=== PATIENT | male | born 2000 | race Caucasian/White ===

== ENCOUNTER 2021-03-22 07:08 | Emergency (ER) | payer SELFPAY ==
[~2021-03-22] VITALS: Ht 177.8 cm; Wt 79.6 kg
--- NOTE | 2021-03-22 07:50 | PHYS DOC ---
General Adult EDM: Chief Complaint: SHORTNESS OF BREATH HPI: HPI: Patient is a 20-year-old male coming in for multiple complaints. Patient states he is been having shortness of breath for the past 2 days. Also complaining of left anterior lower rib pain. Patient states also he has noticed a "lump" doyle eath his sternum. Patient has been treated currently with doxycycline for chlamydia and states that he feels like his stomach is "sucked in". No fevers, cough. Patient has not had his Covid vaccines. No known sick contacts. Patient has baseline diarrhea that is unchanged. Review of Systems: Review of Systems: All other systems within normal limits except for as noted in the HPI Physical Exam: PE: Constitutional: Well developed, well nourished, no acute distress, non-toxic appearance. [] HENT: Normocephalic, atraumatic, bilateral external ears normal, nose normal. [] Eyes: PERRLA, conjunctiva normal, no discharge. [] Neck: No rigidity, supple, no stridor. [] Cardiovascular: Regular rate and rhythm, brisk cap refill [] Lungs & Thorax: Non labored symmetric respirations, no tachypnea or respiratory distress. Lungs clear to auscultation. Tenderness over left ribs. Normal xiphoid. [] Abdomen: Soft, nondistended, no guarding or rebound, no focal tenderness. Skin: Warm, dry, no erythema, no rash. [] Back: Unremarkable Extremities: No deformities, range of motion grossly intact, no lower extremity edema [] Neurologic: Alert and oriented X 3, no focal deficits noted. [] Psychologic: Affect normal, judgement normal, mood normal. [] EKG: EKG: [] Radiology/Procedures: Radiology/Procedures: [address] [address] IMAGING REPORT Signed PATIENT: ILENE BARCLAY ACCOUNT: [id number] : 2000 LOCATION: ER AGE: 20 SEX: M EXAM STATUS: REG ER ORD. PHYSICIAN: USAMA ARNETT MD REASON: left chest pain PROCEDURE: CHEST PA & LATERAL EXAMINATION: Chest radiograph. VIEWS: 2 views COMPARISON: None INDICATION:20 years, Male, left chest pain. FINDINGS: Normal cardiomediastinal silhouette. No focal consolidation. No pleural effusion or pneumothorax. No acute osseous process. IMPRESSION: No acute cardiopulmonary process. Electronically signed by: Christianne Luke MD (03/22/2021 7:52 AM) [id number] DICTATED AND SIGNED BY: CHRISTIANNE LUKE MD DATE: 03/22/21 0751 CC: TEOFILO MAZARIEGOS; USAMA ARNETT MD ~MTH0 0 [] Heart Score: C/O Chest Pain: N/A Risk Factors: Risk Factors: DM, Current or recent (<one month) smoker, HTN, HLP, family history of CAD, obesity. Risk Scores: Score 0 - 3: 2.5% MACE over next 6 weeks - Discharge Home Score 4 - 6: 20.3% MACE over next 6 weeks - Admit for Clinical Observation Score 7 - 10: 72.7% MACE over next 6 weeks - Early Invasive Strategies Course & Med Decision Making: Course & Med Decision Making Pertinent Labs and Imaging studies reviewed. (See chart for details) [] Dragon Disclaimer: Dragon Disclaimer: This electronic medical record was generated, in whole or in part, using a voice recognition dictation system. Departure Departure: Impression: Primary Impression: Chest wall pain Disposition: HOME / SELF CARE / HOMELESS Condition: STABLE Referrals: TEOFILO MAZARIEGOS (PCP) Patient Instructions: Chest Pain, Child USAMA ARNETT MD Mar 22, 2021 07:50
--- NOTE | 2021-03-22 07:54 | RAD ---
EXAMINATION: Chest radiograph. VIEWS: 2 views COMPARISON: None INDICATION:20 years, Male, left chest pain. FINDINGS: Normal cardiomediastinal silhouette. No focal consolidation. No pleural effusion or pneumothorax. No acute osseous process. IMPRESSION: No acute cardiopulmonary process. Electronically signed by: Cassandra Luke MD (03/22/2021 7:52 AM) [id number]
[2021-03-22 08:22] LABS: CALCIUM 9.4 mg/dL (8.5-10.1); GFR 93.4; POTASSIUM 3.7 mmol/L (3.5-5.1)
[2021-03-22 08:27] LABS: ALBUMIN 4.3 g/dL (3.4-5.0); ALBUMIN/GLOBULIN RATIO 1.4 (1.0-1.7); TOTAL BILIRUBIN 0.5 mg/dL (0.2-1.0); TOTAL PROTEIN 7.4 g/dL (6.4-8.2)
[2021-03-22 08:42] LABS: BASO # 0.1 x10^3/uL (0.0-0.2); BASO % 1 % (0-3); EOS # 0.4 x10^3/uL (0.0-0.7); EOS % 5 % (0-3); HEMATOCRIT 48.6 % (39.0-53.0); HEMOGLOBIN 16.9 g/dL (13.0-17.5); LYMPH # 2.9 x10^3/uL (1.0-4.8); LYMPH % 37 % (24-48); MEAN CORPUSCULAR HEMOGLOBIN 30 pg (25-35); MEAN CORPUSCULAR HGB CONC 35 g/dL (31-37); MEAN CORPUSCULAR VOLUME 87 fL (79-100); MONO # 0.8 x10^3/uL (0.0-1.1); MONO % 11 % (0-9); NEUT # 3.6 x10^3uL (1.8-7.7); NEUT % 46 % (31-73); PLATELET COUNT 279 x10^3/uL (140-400); RED BLOOD COUNT 5.57 x10^6/uL (4.30-5.70); RED CELL DISTRIBUTION WIDTH 12.7 % (11.5-14.5); WHITE BLOOD COUNT 7.9 x10^3/uL (4.0-11.0)
[2021-03-22 09:15] VITALS: BP 130/71
== END 2021-03-22 09:21 | disposition home or self-care (01) ==
LOC: ER 07:08
DX: R07.81 Pleurodynia (principal); R06.02 Shortness of breath
CPT/HCPCS: 36415; 71046; 80053; 83690; 85025; 85379; 99284

== ENCOUNTER 2021-12-16 19:53 | Emergency (ER) | payer BC ==
[~2021-12-16] VITALS: Ht 177.8 cm; Wt 76.5 kg
[2021-12-16] MEDS ORDERED: diphenhydrAMINE 50 MG/ML VIAL IVP ONE (20:15)
[2021-12-16] MEDS ORDERED: IV RINGERS SOLUTION,LACTATED 1,000 ML IV ONE ×2 (20:15→21:15)
[2021-12-16] MEDS ORDERED: ONDANSETRON PF 4 MG/2 ML VIAL. IVP ONE (20:15)
--- NOTE | 2021-12-16 20:19 | PHYS DOC ---
Past History Past Medical History: Other Additional Past Medical Histor: chlamydia Past Surgical History: Tonsillectomy, Other Additional Past Surgical Histo: ear tubes Additional Smoking Information: vaps Alcohol Use: Occasionally Drug Use: Marijuana General Adult EDM: Chief Complaint: NAUSEA/VOMITING/DIARRHEA HPI: HPI: Patient is a 21-year-old male that presents today with a 3-day history of nausea and vomiting. Patient states that 3 days ago he started having some nausea and vomiting he states he has been unable to keep any fluids or any food down during this time. Patient also states that he has not voided today. Patient states that he has abdominal pain that comes and goes and he was unable to show me where the pain is out when he does have it, patient appears very anxious and has fine tremors. Patient also states that when he vomits he has a scant amount of blood, he states that when he vomited last he got blurry and almost passed out. Patient denies chest pain, shortness of air, or fever and chills. Review of Systems: Review of Systems: Constitutional: Denies fever or chills Eyes: Denies change in visual acuity HENT: Denies nasal congestion or sore throat Respiratory: Denies cough or shortness of breath Cardiovascular: Denies chest pain or edema GI: abdominal pain, nausea, vomiting, denies bloody stools or diarrhea : Denies dysuria Musculoskeletal: Denies back pain or joint pain Integument: Denies rash Neurologic: Denies headache, focal weakness or sensory changes Endocrine: Denies polyuria or polydipsia Lymphatic: Denies swollen glands Psychiatric: Denies depression or anxiety Current Medications: Current Meds: Current Medications Medications (Trade) Dose Ordered Sig/Galen Start Time Stop Time Status Last Admin Dose Admin Diphenhydramine HCl (Benadryl) 25 mg 1X ONCE 12/16/21 20:15 12/16/21 20:16 UNV Lactated Ringer's 1,000 ml @ 999 mls/hr 1X ONCE 12/16/21 20:15 12/16/21 21:15 UNV Ondansetron HCl (Zofran) 4 mg 1X ONCE 12/16/21 20:15 12/16/21 20:16 UNV Allergies: Allergies: Allergies Coded Allergies Type Severity Reaction Last Updated Verified promethazine Allergy Unknown 03/22/21 Yes Physical Exam: PE: Constitutional: Well developed, well nourished, mild distress, non-toxic appearance. [] HENT: Normocephalic, atraumatic, bilateral external ears normal, oropharynx moist, no oral exudates, nose normal. [] Eyes: PERRLA, EOMI, conjunctiva normal, no discharge. [] Neck: Normal range of motion, no tenderness, supple, no stridor. [] Cardiovascular:Heart rate regular rhythm, no murmur [] Lungs & Thorax: Bilateral breath sounds clear to auscultation [] Abdomen: Bowel sounds normal, patient guarded with palpation, no pulsatile masses or no hernias noted Skin: Warm, dry, no erythema, no rash. [] Back: No tenderness, no CVA tenderness. [] Extremities: No tenderness, no cyanosis, no clubbing, ROM intact, no edema. [] Neurologic: Alert and oriented X 3, normal motor function, normal sensory func tion, no focal deficits noted. [] Psychologic: Affect normal, judgement normal, mood normal. [] Current Patient Data: Labs: Laboratory Tests Test 12/16/21 20:08 White Blood Count 13.6 x10^3/uL Red Blood Count 6.16 x10^6/uL Hemoglobin 19.5 g/dL Hematocrit 54.9 % Mean Corpuscular Volume 89 fL Mean Corpuscular Hemoglobin 32 pg Mean Corpuscular Hemoglobin Concent 36 g/dL Red Cell Distribution Width 12.4 % Platelet Count 405 x10^3/uL Neutrophils (%) (Auto) 73 % Lymphocytes (%) (Auto) 17 % Monocytes (%) (Auto) 9 % Eosinophils (%) (Auto) 0 % Basophils (%) (Auto) 1 % Neutrophils # (Auto) 10.0 x10^3uL Lymphocytes # (Auto) 2.2 x10^3/uL Monocytes # (Auto) 1.3 x10^3/uL Eosinophils # (Auto) 0.0 x10^3/uL Basophils # (Auto) 0.1 x10^3/uL Sodium Level 139 mmol/L Potassium Level 3.0 mmol/L Chloride Level 97 mmol/L Carbon Dioxide Level 25 mmol/L Anion Gap 17 Blood Urea Nitrogen 24 mg/dL Creatinine 1.5 mg/dL Estimated GFR (Cockcroft-Gault) 58.0 BUN/Creatinine Ratio 16 Glucose Level 116 mg/dL Calcium Level 10.4 mg/dL Total Bilirubin 1.6 mg/dL Aspartate Amino Transf (AST/SGOT) 19 U/L Alanine Aminotransferase (ALT/SGPT) 39 U/L Alkaline Phosphatase 95 U/L Total Protein 8.7 g/dL Albumin 5.1 g/dL Albumin/Globulin Ratio 1.4 Lipase 51 U/L Current Medications Medications (Trade) Dose Ordered Sig/Galen Route PRN Reason Start Time Stop Time Status Last Admin Dose Admin Lactated Ringer's 1,000 ml @ 999 mls/hr 1X ONCE IV 12/16/21 20:15 12/16/21 21:15 DC 12/16/21 20:15 Ondansetron HCl (Zofran) 4 mg 1X ONCE IVP 12/16/21 20:15 12/16/21 20:17 DC 12/16/21 20:21 Diphenhydramine HCl (Benadryl) 25 mg 1X ONCE IVP 12/16/21 20:15 12/16/21 20:17 DC 12/16/21 20:20 Lactated Ringer's 1,000 ml @ 1,000 mls/hr 1X ONCE IV 12/16/21 21:15 12/16/21 22:14 12/16/21 21:12 Metoclopramide HCl (Reglan Vial) 10 mg 1X ONCE IVP 12/16/21 21:15 12/16/21 21:16 DC 12/16/21 21:12 Vital Signs: Vital Signs Date Time Temp Pulse Resp B/P (MAP) Pulse Ox O2 Delivery O2 Flow Rate FiO2 12/16/21 20:00 98.4 104 24 161/93 (115) 99 Room Air Vital Signs Date Time Temp Pulse Resp B/P (MAP) Pulse Ox O2 Delivery O2 Flow Rate FiO2 12/16/21 20:00 98.4 104 24 161/93 (115) 99 Room Air EKG: EKG: [] Radiology/Procedures: Radiology/Procedures: [] Heart Score: C/O Chest Pain: N/A Risk Factors: Risk Factors: DM, Current or recent (<one month) smoker, HTN, HLP, family history of CAD, obesity. Risk Scores: Score 0 - 3: 2.5% MACE over next 6 weeks - Discharge Home Score 4 - 6: 20.3% MACE over next 6 weeks - Admit for Clinical Observation Score 7 - 10: 72.7% MACE over next 6 weeks - Early Invasive Strategies Course & Med Decision Making: Course & Med Decision Making Pertinent Labs and Imaging studies reviewed. (See chart for details) 2134 patient is able to tolerate p.o. fluids, reviewed laboratory results with patient and father who was at the bedside, I did offer admitting the patient for intractable nausea and vomiting and for further hydration and management of his nausea overnight, patient at this time declined admission he requesting to go home and try to manage this on an outpatient basis. Patient was informed to stick with clear liquids for the next 24 to 48 hours and then advance as tolerated. He will also be given some Zofran tablets to be taken every 6-8 hours as needed for nausea, he can also alternate with [id number] Benadryl as needed for nausea as well. Patient was instructed to drink Gatorade to help with electrolyte replacement. Dragon Disclaimer: Dragon Disclaimer: This electronic medical record was generated, in whole or in part, using a voice recognition dictation system. Departure Departure: Impression: Primary Impression: Nausea and vomiting in adult Disposition: 01 HOME / SELF CARE / HOMELESS Condition: STABLE Referrals: TEOFILO MAZARIEGOS (PCP) Patient Instructions: Clear Liquid Diet, Nausea and Vomiting Additional Instructions: Clear liquid diet for the next 24 to 48 hours and if tolerating by mouth fluid without any nausea advance as tolerated Zofran 8 mg every 8 hours as needed for nausea, take this with a sip of water and then wait 30 to 45 minutes and then try clear liquids [id number] Benadryl 1 tablet every 6 hours as needed for nausea, again take with a sip of water and wait 30 to 45 minutes before trying clear liquids Return to the emergency department if you continue to have nausea vomiting even with the Zofran and Benadryl for nausea. Follow-up with your primary care physician this week for further management of your nausea and vomiting. Scripts Potassium Chloride (POTASSIUM CHLORIDE ) 20 Meq Tablet.er 20 MEQ PO DAILY for SUPPLEMENT for 5 Days, #5 TAB Prov: SHIRA CHRISTIAN DIRECTOR OF [employer]ELOPMENT 12/16/21 Amoxicillin/Potassium Clav (AMOX TR-K CLV 875-125 MG TAB) 1 Each Tablet 1 TAB PO BID for infection, #20 TAB Prov: SHIRA CHRISTIAN [employer]ELOP[employer] 12/16/21 Ondansetron (ONDANSETRON ODT) 4 Mg Tab.rapdis 2 TAB PO PRN Q8HRS PRN for NAUSEA, #16 TAB Prov: SHIRA CHRISTIAN APRN 12/16/21 SHIRA CHRISTIAN [employer]OP[employer] Dec 16, 2021 20:19
[2021-12-16 20:31] LABS: BASO # 0.1 x10^3/uL (0.0-0.2); BASO % 1 % (0-3); CALCIUM 10.4 mg/dL (8.5-10.1); CREATININE 1.5 mg/dL (0.7-1.3); EOS % 0 % (0-3); HEMATOCRIT 54.9 % (39.0-53.0); HEMOGLOBIN 19.5 g/dL (13.0-17.5); LYMPH # 2.2 x10^3/uL (1.0-4.8); LYMPH % 17 % (24-48); MEAN CORPUSCULAR HEMOGLOBIN 32 pg (25-35); MEAN CORPUSCULAR HGB CONC 36 g/dL (31-37); MEAN CORPUSCULAR VOLUME 89 fL (79-100); MONO # 1.3 x10^3/uL (0.0-1.1); MONO % 9 % (0-9); NEUT % 73 % (31-73); PLATELET COUNT 405 x10^3/uL (140-400); RED BLOOD COUNT 6.16 x10^6/uL (4.30-5.70); RED CELL DISTRIBUTION WIDTH 12.4 % (11.5-14.5); WHITE BLOOD COUNT 13.6 x10^3/uL (4.0-11.0)
[2021-12-16 20:37] LABS: ALBUMIN 5.1 g/dL (3.4-5.0); ALBUMIN/GLOBULIN RATIO 1.4 (1.0-1.7); TOTAL BILIRUBIN 1.6 mg/dL (0.2-1.0); TOTAL PROTEIN 8.7 g/dL (6.4-8.2)
[2021-12-16] MEDS ORDERED: METOCLOPRAMIDE HCL 10 MG/2 ML VIAL. IVP ONE (21:15)
[2021-12-16 21:30] VITALS: BP 123/75
[2021-12-16] MEDS ORDERED: ONDA4TAB12 PO (21:41)
[2021-12-16] MEDS ORDERED: AMOX1TAB11 PO (21:41)
[2021-12-16] MEDS ORDERED: POTA20TA4 PO (21:45)
[2021-12-16] MEDS ORDERED: ONDANSETRON 4MG ODT 4TABLET STARTPACK. PO ONE (21:45)
== END 2021-12-16 22:06 | disposition home or self-care (01) ==
LOC: ER 19:53
DX: R11.2 Nausea with vomiting, unspecified (principal); R10.9 Unspecified abdominal pain; F17.200 Nicotine dependence, unspecified, uncomplicated; Z88.8 Allergy status to other drugs, medicaments and biological substances
CPT/HCPCS: 36415; 80053; 83690; 85025; 96361; 96374; 96375; 99284; J1200; J2405; J2765; J7120; Q0162